=== PATIENT | male | born 1985 | race Caucasian/White ===

== ENCOUNTER 2021-09-16 19:13 | Emergency (ER) | payer MEDICAID ==
[~2021-09-16] VITALS: Ht 165.1 cm; Wt 70.3 kg
--- NOTE | 2021-09-16 19:50 | NUR ---
US TECH AT PT'S BEDSIDE
--- NOTE | 2021-09-16 19:58 | NUR ---
TO ER BED 14. BIBSELF C/O TESTICAL INJURY. PT AAOX4. AMBULATORY. CHANGED INTO GOWN. BREATHING IS EVEN AND NONLABORED. AWAITING MD KNOTT
[2021-09-16] MEDS ORDERED: CEFTRIAXONE 500 MG VIAL IM ONE (20:00)
[2021-09-16] MEDS ORDERED: DOXYCYCLINE HYCLATE (100 MG) 100 MG TABLET PO ONE (20:00)
[2021-09-16] MEDS ORDERED: DOXYCYCLINE HYCLATE (100 MG) 100 MG TABLET ONE (20:04)
[2021-09-16] MEDS ORDERED: CEFTRIAXONE 500 MG VIAL ONE (20:04)
--- NOTE | 2021-09-16 20:21 | NUR ---
URINE SAMPLE COLLECTED AND SENT TO LAB
[2021-09-16 20:44] LABS: BILIRUBIN,URINE SMALL (NEGATIVE); COLOR,URINE DARK YELLOW (YELLOW); LEUKOCYTE ESTERASE ,URINE NEGATIVE (NEGATIVE); NITRITE, URINE NEGATIVE (NEGATIVE); PROTEIN,URINE NEGATIVE (NEGATIVE); UGLUCOSE NEGATIVE (NEGATIVE)
[2021-09-16 21:00] LABS: BACTERIA,URINE None seen /HPF (None Seen); MUCUS,URINE Moderate /LPF (None Seen); RBC,URINE 0-2 /HPF (0-2); SQUAMOUS EPITHELIAL CELL,UR Rare /HPF (None Seen); WBC,URINE 0-2 /HPF (0-3)
[2021-09-16] MEDS ORDERED: IBUPROFEN 400 MG TABLET PO ONE (21:00)
[2021-09-16] MEDS ORDERED: IBUPROFEN 400 MG TABLET ONE (21:01)
--- NOTE | 2021-09-16 21:03 | NUR ---
Patient discharged to home in stable condition. Written and verbal after care instructions given. Patient verbalizes understanding of instruction.
[2021-09-16 21:04] VITALS: BP 121/70
[2021-09-16] MEDS ORDERED: IBUP-1955 PO (21:09)
[2021-09-16] MEDS ORDERED: DOXY-326 PO (21:09)
== END 2021-09-16 21:33 | disposition home or self-care (01) ==
LOC: ER 19:16
DX: N50.3 Cyst of epididymis (principal); N43.2 Other hydrocele; Z60.2 Problems related to living alone; Z79.899 Other long term (current) drug therapy
CPT/HCPCS: 76870; 81001; 87086; 87491; 87591; 96372; 99284; J0696